=== PATIENT | male | born 1945 | race Caucasian/White ===

== ENCOUNTER → 2017-07-24 | Outpatient (CLI) | payer MEDICARE ==
[2015-09-16 10:45] VITALS: BP 111/57
[~2017-07-24] MED LIST: ASPI81TA50 PO; LISI-334 PO; MULT1TAB97 PO; OMEP20CA5 PO; OXYC-323 PO
--- NOTE | 2017-07-24 15:46 | KCIC ---
EXAM: Lumbar spine MRI without contrast. HISTORY: Spondylolisthesis. TECHNIQUE: Multiplanar, multisequence magnetic resonance imaging of the lumbar spine was performed without contrast. COMPARISON: None. FINDINGS: There is grade 2 anterolisthesis of L5 on S1, measuring 13 mm. There are associated pars interarticularis defects at this level. There is minimal retrolisthesis of L3 on L4 and L4 and L5. There is minimal grade 1 anterolisthesis of L2 on L3, measuring 2 mm. There is degenerative endplate remodeling with disc space narrowing predominantly at L5-S1. There are a few endplate Schmorl's nodes. The conus terminates at L1. There is no suspicious osseous lesion. At L1-L2, there is mild facet arthropathy. There is no stenosis. At L2-L3, there is a mild disc bulge and endplate remodeling. There is mild facet arthropathy. There is minimal central canal stenosis. At L3-L4, there is a mild disc bulge and endplate remodeling. There is minimal facet arthropathy. There is no stenosis. At L4-L5, there is a posterior central disc protrusion and annular tear superimposed on a disc bulge and endplate remodeling. There is no stenosis. At L5-S1, there is a left paracentral to foraminal disc protrusion with 3 mm superior extrusion and annular tear superimposed on a diffuse disc bulge and endplate osteophytosis. There is grade 2 anterolisthesis with pars defects. The combination of these findings results in severe bilateral foraminal stenosis. IMPRESSION: 1. L5-S1: Grade 2 anterolisthesis with pars interarticularis defects. The combination of this finding and a left paracentral to foraminal disc protrusion with superior extrusion superimposed on a disc bulge and endplate osteophytosis results in severe bilateral foraminal stenosis at this level. 2. Mild degenerative change throughout the remainder of the lumbar spine, described above. Electronically signed by: Ellen Moffett MD (07/24/2017 2:16 PM) [id number]
== END | disposition home or self-care (01) ==
LOC: KCIC MRI 12:39
PROVIDERS: ATTEND Family Medicine
DX: M48.061 Spinal stenosis, lumbar region without neurogenic claudication (principal); M51.26 Other intervertebral disc displacement, lumbar region; M43.16 Spondylolisthesis, lumbar region
CPT/HCPCS: 72148